=== PATIENT | female | born 1940 | race African-American/Black ===

== ENCOUNTER 2020-03-14 15:21 | Inpatient (IN) | payer MEDICARE ==
[~2020-03-14] VITALS: Ht 162.6 cm; Wt 90.3 kg
[2020-03-14 15:54] VITALS: BP 135/72
--- NOTE | 2020-03-14 16:12 | Emergency Room Report ---
History of Present Illness General Chief Complaint: Generalized Weakness Source: Patient (Belén Cortes) Present Illness HPI 79-year-old female presents to the emergency department brought by ambulance after concerned daughter called 911. Daughter reports that since Friday the patient has had significant fatigue and weakness. Her daughter reports that the patient is normally ambulatory and much more alert. The daughter states that her mother has not eaten in 5 days and is just been wanting to lay down. She reports that her mom did complain about right leg pain with some swelling. Daughter reports history of right knee injury and frequent swelling of the lower extremities. The patient reports 5 out of 10 severity pain in the right calf she denies having knee pain. Patient denies cough, shortness of breath, dizziness or fatigue. Pt. Denies abdominal pain or tenderness. She denies trauma or fall. Pt. Reports having normal bowel movements, and denies urinary symptoms. PmHx of HTN and Dementia. (Belén Cortes) Allergies: Coded Allergies: No Known Allergies (Unverified , 03/14/20) COVID-19 Screening Contact w/high risk pt: No Experienced COVID-19 symptoms?: No COVID-19 Testing performed MARINE PROPULSION TECHNICIAN: No (Belén Cortes) Patient History Past Medical History: see triage record, HTN, dementia Past Surgical History: none Pertinent Family History: none Now: No Reviewed Nursing Documentation: PMH: Agreed; PSxH: Agreed (Belén Cortes) Nursing Documentation-PMH Past Medical History: No History, Except For Hx Hypertension: Yes (Belén Cortes) Review of Systems All Other Systems: negative except mentioned in HPI (Belén Cortes) Physical Exam Vital Signs Date Time Temp Pulse Resp B/P (MAP) Pulse Ox O2 Delivery O2 Flow Rate FiO2 03/14/20 15:18 97.5 115 20 135/72 (93) 98 Room Air Sp02 EP Interpretation: reviewed, normal General Appearance: no apparent distress, alert, GCS 15, non-toxic Head: normocephalic, atraumatic Eyes: bilateral eye normal inspection, bilateral eye PERRL ENT: hearing grossly normal, normal voice Neck: full range of motion Respiratory: chest non-tender, lungs clear, normal breath sounds, no respiratory distress, no accessory muscle use, no wheezing, speaking full sentences Cardiovascular #1: regular rate, rhythm, tachycardia, edema - bilateral LE edema/swelling, right > left. Gastrointestinal: normal bowel sounds, non tender, soft Rectal: deferred Genitourinary: ext genitalia/vag normal Musculoskeletal: back normal, calf tenderness - Right, swelling - RIght calf and knee. Neurologic: alert, sensory intact, motor weakness, responsive, speech normal, no pronator, no focal defects, other - Pt. only orientated to person. Psychiatric: judgement/insight normal, no suicidal/homicidal ideation Skin: normal color (Belén Cortes) Medical Decision Making PA Attestation Dr. Medina Is my supervising Physician whom patient management has been discussed with. (Belén Cortes) Diagnostic Impression: Primary Impression: COVID-19 Additional Impression: JOY (acute kidney injury) ER Course Pt. with hx of Dementia. Daughter reports no Advance directive in place. 79-year-old female presents to the emergency department brought by ambulance after concerned daughter called 911. Daughter reports that since Friday the patient has had significant fatigue and weakness. Her daughter reports that the patient is normally ambulatory and much more alert. The daughter states that her mother has not eaten in 5 days and is just been wanting to lay down. She reports that her mom did complain about right leg pain with some swelling. Daughter reports history of right knee injury and frequent swelling of the lower extremities. The patient reports 5 out of 10 severity pain in the right calf she denies having knee pain. Patient denies cough, shortness of breath, dizziness or fatigue. Pt. Denies abdominal pain or tenderness. She denies trauma or fall. Pt. Reports having normal bowel movements, and denies urinary symptoms. PmHx of HTN and Dementia. Ddx considered but are not limited to : MS, MG, guilan barre, MD, drug int oxication, hypovolemia, infection, rhabdomylosis, ETOH, CVA/TIA, NMS, CHF, Seizures, Cardiac outflow obstruction, QT-prolongation, Brugada, or Anemia just to name a few. Vital signs: are WNL, pt. is afebrile H&PE are most consistent with patient that is nontoxic in appearance with significant lethargy. No evidence of acute abdomen on exam. No evidence of focal neurological deficit. Right lower extremity is suspicious for possible DVT given right calf tenderness as well as swelling and torturous veins. ORDERS: - CBC -WNL -CMP: Elevated BUN of 48, elevated creatinine at 2.3 - Troponin: 0.20- WNL - BNP: * elevated 517 -CK: WNL -D-Dimer: Elevated at 3.48 -PT/PTT: WNL -CRP: Elevated at 12.4 -Lipase: 440 - UA: 3+ protein, no increase in inflammatory markers. Few bacteria as well as squamous epithelial cells most indicative of contamination. -EKG92 bpm NSR, some left axis deviation -CXR: Unremarkable -VENOUS DUPLEX RIGHT LE: Negative for acute DVT -COVID-19: POSITIVE ED INTERVENTIONS: -1 Liter NS Bolus IV DISPOSITION: at this time pt. will be admitted for JOY and COVID-19. Dr. Steven from [place] gave approval over the phone for pt. to be admitted here. authorization number was given to ED registration. -Pt. is to be admitted to Dr. San, who agrees to continue pt. management and care. Labs Test 03/14/20 16:27 03/14/20 17:00 White Blood Count 5.7 K/UL (4.8-10.8) Red Blood Count 4.82 M/UL (4.20-5.40) Hemoglobin 13.5 G/DL (12.0-16.0) Hematocrit 39.7 % (37.0-47.0) Mean Corpuscular Volume 82 FL (80-99) Mean Corpuscular Hemoglobin 27.9 PG (27.0-31.0) Mean Corpuscular Hemoglobin Concent 33.9 G/DL (32.0-36.0) Red Cell Distribution Width 14.7 % (11.6-14.8) Platelet Count 252 K/UL (150-450) Mean Platelet Volume 8.2 FL (6.5-10.1) Neutrophils (%) (Auto) 66.3 % (45.0-75.0) Lymphocytes (%) (Auto) 15.0 % (20.0-45.0) Monocytes (%) (Auto) 17.7 % (1.0-10.0) Eosinophils (%) (Auto) 0.1 % (0.0-3.0) Basophils (%) (Auto) 0.9 % (0.0-2.0) Prothrombin Time 11.3 SEC (9.30-11.50) Prothromb Time International Ratio 1.0 (0.9-1.1) Activated Partial Thromboplast Time 28 SEC (23-33) D-Dimer 3.48 mg/L FEU (0.00-0.49) Sodium Level 136 MMOL/L (136-145) Potassium Level 3.9 MMOL/L (3.5-5.1) Chloride Level 98 MMOL/L (98-107) Carbon Dioxide Level 27 MMOL/L (21-32) Anion Gap 11 mmol/L (5-15) Blood Urea Nitrogen 48 mg/dL (7-18) Creatinine 2.3 MG/DL (0.55-1.30) Estimat Glomerular Filtration Rate 25.0 mL/min (>60) Glucose Level 137 MG/DL (74-106) Calcium Level 9.3 MG/DL (8.5-10.1) Ferritin 375 NG/ML (8-388) Total Bilirubin 0.9 MG/DL (0.2-1.0) Aspartate Amino Transf (AST/SGOT) 33 U/L (15-37) Alanine Aminotransferase (ALT/SGPT) 15 U/L (12-78) Alkaline Phosphatase 63 U/L (46-116) Lactate Dehydrogenase 292 U/L (81-234) Total Creatine Kinase 141 U/L (26-308) Troponin I 0.021 ng/mL (0.000-0.056) C-Reactive Protein, Quantitative 12.4 mg/dL (0.00-0.90) Pro-B-Type Natriuretic Peptide 517 pg/mL (0-125) Total Protein 9.1 G/DL (6.4-8.2) Albumin 3.2 G/DL (3.4-5.0) Globulin 5.9 g/dL Albumin/Globulin Ratio 0.5 (1.0-2.7) Lipase 440 U/L (73-393) Urine Color Yellow Urine Appearance Slightly cloudy Urine pH 5 (4.5-8.0) Urine Specific [place] 1.020 (1.005-1.035) Urine Protein 3+ (NEGATIVE) Urine Glucose (UA) Negative (NEGATIVE) Urine Ketones Negative (NEGATIVE) Urine Blood 2+ (NEGATIVE) Urine Nitrite Negative (NEGATIVE) Urine Bilirubin Negative (NEGATIVE) Urine Urobilinogen 4 MG/DL (0.0-1.0) Urine Leukocyte Esterase Negative (NEGATIVE) Urine RBC 2-4 /HPF (0 - 2) Urine WBC 0-2 /HPF (0 - 2) Urine Squamous Epithelial Cells Few /LPF (NONE/OCC) Urine Amorphous Sediment Few /LPF (NONE) Urine Bacteria Few /HPF (NONE) Lactic Acid Level 1.50 mmol/L (0.4-2.0) (Belén Cortes) ER Course I saw and evaluated the patient and discussed the care with Belén LOCKWOOD on 03/14/20. I agree with the findings and plan as documented in the note. 79-year-old female multiple comorbidities presents with JOY, altered mental status, and positive Covid patient given 1 L of hydration, supportive care started patient admitted to Dr. San (Efrem Medina MD) EKG Diagnostic Results Troponin ordered: Yes When was troponin ordered?: Mar 14, 2020 EKG Time: 16:29 Rate: normal Rhythm: NSR ST Segments: no acute changes ASA given to the pt in ED: No PA Scribe Text This Interpretation was scribed by FABIÁN Cortes. (Belén Cortes) Last Vital Signs Date Time Temp Pulse Resp B/P (MAP) Pulse Ox O2 Delivery O2 Flow Rate FiO2 03/14/20 15:54 97.5 20 135/72 98 Room Air 03/14/20 15:54 115 (Belén Cortes) Disposition: ADMITTED INPATIENT Condition: Serious Scripts No Active Prescriptions or Reported Meds Belén Cortes Mar 14, 2020 16:12 Efrem Medina MD Mar 14, 2020 22:13
[2020-03-14 16:49] LABS: CALCIUM 9.3 MG/DL (8.5-10.1); CREATININE 2.3 MG/DL (0.55-1.30); POTASSIUM 3.9 MMOL/L (3.5-5.1)
[2020-03-14 17:00] LABS: ALBUMIN 3.2 G/DL (3.4-5.0); ALBUMIN/GLOBULIN RATIO 0.5 (1.0-2.7); BILIRUBIN,TOTAL 0.9 MG/DL (0.2-1.0)
[2020-03-14 17:01] LABS: BASOPHILS % (AUTO) 0.9 % (0.0-2.0); EOSINOPHILS % (AUTO) 0.1 % (0.0-3.0); HEMATOCRIT 39.7 % (37.0-47.0); HEMOGLOBIN 13.5 G/DL (12.0-16.0); MEAN CORPUSCULAR VOLUME 82 FL (80-99); MONOCYTES % (AUTO) 17.7 % (1.0-10.0); NEUTROPHILS % (AUTO) 66.3 % (45.0-75.0); PLATELET COUNT 252 K/UL (150-450); RED BLOOD COUNT 4.82 M/UL (4.20-5.40); RED CELL DISTRIBUTION WIDTH 14.7 % (11.6-14.8); WHITE BLOOD COUNT 5.7 K/UL (4.8-10.8)
--- NOTE | 2020-03-14 17:02 | Diagnostic Imaging Report ---
Indication: Chest pain Technique: XRAY Chest 1v Comparison: None Findings: Heart size and mediastinal contours are within normal limits for AP technique. There is no focal airspace consolidation, pneumothorax or pleural effusion. Osseous structures demonstrate no acute abnormality. Impression: No radiographic evidence of acute cardiopulmonary disease.
[2020-03-14 17:37] LABS: APPEARANCE,URINE SLIGHTLY CLOUDY; BILIRUBIN, URINE NEGATIVE (NEGATIVE); GLUCOSE, URINE (UA) NEGATIVE (NEGATIVE); KETONES,URINE NEGATIVE (NEGATIVE); LEUKOCYTE ESTERASE ,URINE NEGATIVE (NEGATIVE); NITRITE,URINE NEGATIVE (NEGATIVE); PH,URINE 5 (4.5-8.0); PROTEIN,URINE 3+ (NEGATIVE); UROBILINOGEN,URINE 4 MG/DL (0.0-1.0)
[2020-03-14 17:38] LABS: CREATINE KINASE 141 U/L (26-308); FERRITIN 375 NG/ML (8-388); LACTATE DEHYDROGENASE 292 U/L (81-234)
[2020-03-14 17:39] LABS: COLOR,URINE YELLOW
[2020-03-14 20:46] VITALS: BP 149/87
[2020-03-14] MEDS ORDERED: D5 1/2NS w/KCl 20mEq 1,000 ML IV ONE (23:00)
[2020-03-14] MEDS ORDERED: LORazepam Inj 2mg/ml 1ml IV PRN (23:00)
[2020-03-15 04:00] VITALS: BP 141/88
[2020-03-15 08:00] VITALS: BP 148/99
--- NOTE | 2020-03-15 08:51 | Diagnostic Imaging Report ---
Indication: Right leg pain Technique: Grayscale and duplex images of the right lower extremity veins Comparison: none Findings: On the right, grayscale and duplex images demonstrate no evidence of intraluminal thrombus. Normal phasic Doppler waveforms, demonstrating normal augmentation response and no evidence of valvular insufficiency. Greater saphenous vein(s) and tibial veins are patent. Normal compressibility. Impression: Negative for evidence of lower extremity deep venous thrombosis on the right
--- NOTE | 2020-03-15 08:57 | Consultation ---
History of Present Illness General Date patient seen: Mar 15, 2020 Time patient seen: 11:14 Chief Complaint: Generalized Weakness Referring physician: PCP Reason for Consultation: COVID+ Present Illness HPI 79yo F who p/w fatigue and weakness, found to be COVID+ for which ID is consulted. Per ED note, on presentation pt had not eaten for 5 days and had been very tired. Also c/o R leg pain w/ some swelling. H/o R knee injury and BLE swelling. Pt is AF, HDS on RA satting well in house. NAD. WBC wnl. Pt denies any pain, issues breathing or other complaints. Reports she is doing well PMH: HTN Dementia Allergies: Coded Allergies: No Known Allergies (Unverified , 03/14/20) Medication History No Active Prescriptions or Reported Meds Patient History Limited by: medical condition Healthcare decision maker Resuscitation status Advanced Directive on File Review of Systems ROS Narrative 10-point ROS neg except as noted in HPI Physical Exam Neck: limited range of motion Physical Exam Narrative Gen: NAD HEENT: NCAT Pulm: BL chest rise Abd: Soft, NTND Ext: No c/c/e Skin: No visible rashes Neuro: Awake Last 24 Hour Vital Signs Date Time Temp Pulse Resp B/P (MAP) Pulse Ox O2 Delivery O2 Flow Rate FiO2 03/15/20 04:00 99.1 82 20 141/88 (105) 96 03/15/20 00:46 Room Air 03/14/20 22:00 98.9 94 18 159/90 96 Room Air 03/14/20 15:54 97.5 20 135/72 98 Room Air 03/14/20 15:54 115 20 Room Air 03/14/20 15:18 97.5 115 20 135/72 (93) 98 Room Air Intake and Output 03/14/20 03/15/20 19:00 07:00 Intake Total 0 ml Balance 0 ml Intake Oral 0 ml # Voids 4 Laboratory Tests Test 03/14/20 16:27 03/14/20 17:00 White Blood Count 5.7 K/UL (4.8-10.8) Red Blood Count 4.82 M/UL (4.20-5.40) Hemoglobin 13.5 G/DL (12.0-16.0) Hematocrit 39.7 % (37.0-47.0) Mean Corpuscular Volume 82 FL (80-99) Mean Corpuscular Hemoglobin 27.9 PG (27.0-31.0) Mean Corpuscular Hemoglobin Concent 33.9 G/DL (32.0-36.0) Red Cell Distribution Width 14.7 % (11.6-14.8) Platelet Count 252 K/UL (150-450) Mean Platelet Volume 8.2 FL (6.5-10.1) Neutrophils (%) (Auto) 66.3 % (45.0-75.0) Lymphocytes (%) (Auto) 15.0 % (20.0-45.0) L Monocytes (%) (Auto) 17.7 % (1.0-10.0) H Eosinophils (%) (Auto) 0.1 % (0.0-3.0) Basophils (%) (Auto) 0.9 % (0.0-2.0) Prothrombin Time 11.3 SEC (9.30-11.50) Prothromb Time International Ratio 1.0 (0.9-1.1) Activated Partial Thromboplast Time 28 SEC (23-33) D-Dimer 3.48 mg/L FEU (0.00-0.49) H Sodium Level 136 MMOL/L (136-145) Potassium Level 3.9 MMOL/L (3.5-5.1) Chloride Level 98 MMOL/L (98-107) Carbon Dioxide Level 27 MMOL/L (21-32) Anion Gap 11 mmol/L (5-15) Blood Urea Nitrogen 48 mg/dL (7-18) H Creatinine 2.3 MG/DL (0.55-1.30) H Estimat Glomerular Filtration Rate 25.0 mL/min (>60) Glucose Level 137 MG/DL (74-106) H Calcium Level 9.3 MG/DL (8.5-10.1) Ferritin 375 NG/ML (8-388) Total Bilirubin 0.9 MG/DL (0.2-1.0) Aspartate Amino Transf (AST/SGOT) 33 U/L (15-37) Alanine Aminotransferase (ALT/SGPT) 15 U/L (12-78) Alkaline Phosphatase 63 U/L (46-116) Lactate Dehydrogenase 292 U/L (81-234) H Total Creatine Kinase 141 U/L (26-308) Troponin I 0.021 ng/mL (0.000-0.056) C-Reactive Protein, Quantitative 12.4 mg/dL (0.00-0.90) H Pro-B-Type Natriuretic Peptide 517 pg/mL (0-125) H Total Protein 9.1 G/DL (6.4-8.2) H Albumin 3.2 G/DL (3.4-5.0) L Globulin 5.9 g/dL Albumin/Globulin Ratio 0.5 (1.0-2.7) L Lipase 440 U/L (73-393) H Urine Color Yellow Urine Appearance Slightly cloudy Urine pH 5 (4.5-8.0) Urine Specific [place] 1.020 (1.005-1.035) Urine Protein 3+ (NEGATIVE) H Urine Glucose (UA) Negative (NEGATIVE) Urine Ketones Negative (NEGATIVE) Urine Blood 2+ (NEGATIVE) H Urine Nitrite Negative (NEGATIVE) Urine Bilirubin Negative (NEGATIVE) Urine Urobilinogen 4 MG/DL (0.0-1.0) H Urine Leukocyte Esterase Negative (NEGATIVE) Urine RBC 2-4 /HPF (0 - 2) H Urine WBC 0-2 /HPF (0 - 2) Urine Squamous Epithelial Cells Few /LPF (NONE/OCC) Urine Amorphous Sediment Few /LPF (NONE) H Urine Bacteria Few /HPF (NONE) Lactic Acid Level 1.50 mmol/L (0.4-2.0) Microbiology Date/Time Source Procedure Growth Status 03/14/20 18:51 Nasopharynx SARS-CoV-2 RdRp Gene Assay - Final Complete Height (Feet): 5 Height (Inches): 4.00 Weight (Pounds): 199 Medications Current Medications Medications (Trade) Dose Ordered Sig/Natalya Route PRN Reason Start Time Stop Time Status Last Admin Dose Admin Acetaminophen (Tylenol) 650 mg Q6H PRN ORAL Mild Pain (Pain Scale 1-3) 03/14/20 23:00 04/13/20 22:59 Acetaminophen (Tylenol) 650 mg Q6H PRN ORAL Temp >100.5 03/14/20 23:00 04/13/20 22:59 Amlodipine Besylate (Norvasc) 5 mg DAILY ORAL 03/15/20 09:00 04/14/20 08:59 Aspirin (ASA) 81 mg DAILY NG 03/15/20 09:00 04/29/20 08:59 Dexamethasone Sodium Phosphate (Decadron 10mg/ ml Inj) 6 mg DAILY IV 03/15/20 09:00 06/13/20 08:59 Dextrose/ Electrolytes 1,000 ml @ 75 mls/hr [id number] ONCE IV 03/14/20 23:00 03/15/20 12:19 03/14/20 23:00 Heparin Sodium (Porcine) (Heparin 5000 units/ml) 5,000 units EVERY 12 HOURS SUBQ 03/15/20 09:00 04/29/20 08:59 Lorazepam (Ativan 2mg/ml 1ml) 0.5 mg EVERY 6 HOURS PRN IV For Anxiety 03/14/20 23:00 03/21/20 22:59 Ondansetron HCl (Zofran) 4 mg Q6H PRN IVP Nausea & Vomiting 03/14/20 23:00 04/13/20 22:59 Assessment/Plan Assessment/Plan: 79yo F with: COVID pna Afebrile Normal WBC Lymphopenia 03/14 BCx p COVID rapid test positive CXR: No acute process JOY, Cr 2.3 PMH: HTN Dementia Plan: Cont dexamethasone #2 for now, if remains on RA will stop Monitor off abx given doing well on RA and normal WBC Not candidate for RDV given doing well on RA This institution does not have access to convalescent plasma, and as pt doing well on RA unlikely to benefit from it Monitor CBC/CMP Monitor temp curve, hemodynamics Monitor resp status D/w RN Thank you for this consult. [facility] will continue to follow. Maggie Chowdary M.D. Mar 15, 2020 08:57
[2020-03-15] MEDS: Heparin 5000 units/ml inj SUBQ SCH ×3 (09:00→21:00)
[2020-03-15 09:23] LABS: BASOPHILS % (AUTO) 1.2 % (0.0-2.0); EOSINOPHILS % (AUTO) 0.4 % (0.0-3.0); HEMATOCRIT 39.8 % (37.0-47.0); HEMOGLOBIN 13.6 G/DL (12.0-16.0); LYMPHOCYTES % (AUTO) 21.3 % (20.0-45.0); MEAN CORPUSCULAR VOLUME 82 FL (80-99); MONOCYTES % (AUTO) 17.7 % (1.0-10.0); NEUTROPHILS % (AUTO) 59.4 % (45.0-75.0); PLATELET COUNT 229 K/UL (150-450); RED BLOOD COUNT 4.84 M/UL (4.20-5.40); RED CELL DISTRIBUTION WIDTH 14.1 % (11.6-14.8); WHITE BLOOD COUNT 4.8 K/UL (4.8-10.8)
[2020-03-15] MEDS: Aspirin Baby 81mg NG SCH (10:04)
[2020-03-15] MEDS: dexAMETHasone 10mg/ml Inj IV SCH (10:04)
--- NOTE | 2020-03-15 10:09 | Consultation ---
History of Present Illness General Date patient seen: Mar 15, 2020 Chief Complaint: Generalized Weakness Referring physician: PCP Reason for Consultation: COVID+ Present Illness HPI 79-year-old female with hx of HTN and dementia presented to ER brought by ambulance cecause of fatigue and weakness. Her daughter reports that the patient is normally ambulatory and much more alert. The daughter states that her mother has not eaten in 5 days and is just been wanting to lay down. The patient reports 5 out of 10 severity pain in the right calf she denies having knee pain. Patient denies cough, shortness of breath, dizziness or fatigue. She was found to be COVID positive. She also had acute renal failure caused by dehydration. She is admitted for further management. Allergies: Coded Allergies: No Known Allergies (Unverified , 03/14/20) Medication History No Active Prescriptions or Reported Meds Patient History Healthcare decision maker Resuscitation status Advanced Directive on File Past Medical/Surgical History Past Medical/Surgical History: (1) History of hypertension (2) Alzheimer's dementia Review of Systems All Other Systems: negative except mentioned in HPI Physical Exam General Appearance: WD/WN, no apparent distress, alert Lines, tubes and drains: peripheral HEENT: normocephalic, atraumatic Neck: non-tender, normal alignment, supple Breasts: no masses Cardiovascular/Chest: normal peripheral pulses, normal rate Abdomen: normal bowel sounds, non tender Genitourinary/Rectal: normal genital exam Last 24 Hour Vital Signs Date Time Temp Pulse Resp B/P (MAP) Pulse Ox O2 Delivery O2 Flow Rate FiO2 03/15/20 04:00 99.1 82 20 141/88 (105) 96 03/15/20 00:46 Room Air 03/14/20 22:00 98.9 94 18 159/90 96 Room Air 03/14/20 15:54 97.5 20 135/72 98 Room Air 03/14/20 15:54 115 20 Room Air 03/14/20 15:18 97.5 115 20 135/72 (93) 98 Room Air Intake and Output 03/14/20 03/15/20 19:00 07:00 Intake Total 0 ml Balance 0 ml Intake Oral 0 ml # Voids 4 Laboratory Tests Test 03/14/20 16:27 03/14/20 17:00 03/15/20 09:14 White Blood Count 5.7 K/UL (4.8-10.8) 4.8 K/UL (4.8-10.8) Red Blood Count 4.82 M/UL (4.20-5.40) 4.84 M/UL (4.20-5.40) Hemoglobin 13.5 G/DL (12.0-16.0) 13.6 G/DL (12.0-16.0) Hematocrit 39.7 % (37.0-47.0) 39.8 % (37.0-47.0) Mean Corpuscular Volume 82 FL (80-99) 82 FL (80-99) Mean Corpuscular Hemoglobin 27.9 PG (27.0-31.0) 28.0 PG (27.0-31.0) Mean Corpuscular Hemoglobin Concent 33.9 G/DL (32.0-36.0) 34.1 G/DL (32.0-36.0) Red Cell Distribution Width 14.7 % (11.6-14.8) 14.1 % (11.6-14.8) Platelet Count 252 K/UL (150-450) 229 K/UL (150-450) Mean Platelet Volume 8.2 FL (6.5-10.1) 7.2 FL (6.5-10.1) Neutrophils (%) (Auto) 66.3 % (45.0-75.0) 59.4 % (45.0-75.0) Lymphocytes (%) (Auto) 15.0 % (20.0-45.0) L 21.3 % (20.0-45.0) Monocytes (%) (Auto) 17.7 % (1.0-10.0) H 17.7 % (1.0-10.0) H Eosinophils (%) (Auto) 0.1 % (0.0-3.0) 0.4 % (0.0-3.0) Basophils (%) (Auto) 0.9 % (0.0-2.0) 1.2 % (0.0-2.0) Prothrombin Time 11.3 SEC (9.30-11.50) Prothromb Time International Ratio 1.0 (0.9-1.1) Activated Partial Thromboplast Time 28 SEC (23-33) D-Dimer 3.48 mg/L FEU (0.00-0.49) H Pending Sodium Level 136 MMOL/L (136-145) Pending Potassium Level 3.9 MMOL/L (3.5-5.1) Pending Chloride Level 98 MMOL/L (98-107) Pending Carbon Dioxide Level 27 MMOL/L (21-32) Pending Anion Gap 11 mmol/L (5-15) Blood Urea Nitrogen 48 mg/dL (7-18) H Pending Creatinine 2.3 MG/DL (0.55-1.30) H Pending Estimat Glomerular Filtration Rate 25.0 mL/min (>60) Pending Glucose Level 137 MG/DL (74-106) H Pending Calcium Level 9.3 MG/DL (8.5-10.1) Pending Ferritin 375 NG/ML (8-388) Total Bilirubin 0.9 MG/DL (0.2-1.0) Aspartate Amino Transf (AST/SGOT) 33 U/L (15-37) Alanine Aminotransferase (ALT/SGPT) 15 U/L (12-78) Alkaline Phosphatase 63 U/L (46-116) Lactate Dehydrogenase 292 U/L (81-234) H Total Creatine Kinase 141 U/L (26-308) Troponin I 0.021 ng/mL (0.000-0.056) Pending C-Reactive Protein, Quantitative 12.4 mg/dL (0.00-0.90) H Pending Pro-B-Type Natriuretic Peptide 517 pg/mL (0-125) H Total Protein 9.1 G/DL (6.4-8.2) H Albumin 3.2 G/DL (3.4-5.0) L Globulin 5.9 g/dL Albumin/Globulin Ratio 0.5 (1.0-2.7) L Lipase 440 U/L (73-393) H Urine Color Yellow Urine Appearance Slightly cloudy Urine pH 5 (4.5-8.0) Urine Specific [place] 1.020 (1.005-1.035) Urine Protein 3+ (NEGATIVE) H Urine Glucose (UA) Negative (NEGATIVE) Urine Ketones Negative (NEGATIVE) Urine Blood 2+ (NEGATIVE) H Urine Nitrite Negative (NEGATIVE) Urine Bilirubin Negative (NEGATIVE) Urine Urobilinogen 4 MG/DL (0.0-1.0) H Urine Leukocyte Esterase Negative (NEGATIVE) Urine RBC 2-4 /HPF (0 - 2) H Urine WBC 0-2 /HPF (0 - 2) Urine Squamous Epithelial Cells Few /LPF (NONE/OCC) Urine Amorphous Sediment Few /LPF (NONE) H Urine Bacteria Few /HPF (NONE) Lactic Acid Level 1.50 mmol/L (0.4-2.0) Erythrocyte Sedimentation Rate Pending Phosphorus Level Pending Magnesium Level Pending Microbiology Date/Time Source Procedure Growth Status 03/14/20 18:51 Nasopharynx SARS-CoV-2 RdRp Gene Assay - Final Complete Height (Feet): 5 Height (Inches): 4.00 Weight (Pounds): 199 Medications Current Medications Medications (Trade) Dose Ordered Sig/Natalya Route PRN Reason Start Time Stop Time Status Last Admin Dose Admin Acetaminophen (Tylenol) 650 mg Q6H PRN ORAL Mild Pain (Pain Scale 1-3) 03/14/20 23:00 04/13/20 22:59 Acetaminophen (Tylenol) 650 mg Q6H PRN ORAL Temp >100.5 03/14/20 23:00 04/13/20 22:59 Amlodipine Besylate (Norvasc) 5 mg DAILY ORAL 03/15/20 09:00 04/14/20 08:59 Aspirin (ASA) 81 mg DAILY NG 03/15/20 09:00 04/29/20 08:59 Dexamethasone Sodium Phosphate (Decadron 10mg/ ml Inj) 6 mg DAILY IV 03/15/20 09:00 03/24/20 09:01 Dextrose/ Electrolytes 1,000 ml @ 75 mls/hr [id number] ONCE IV 03/14/20 23:00 03/15/20 12:19 03/14/20 23:00 Heparin Sodium (Porcine) (Heparin 5000 units/ml) 5,000 units EVERY 12 HOURS SUBQ 03/15/20 09:00 04/29/20 08:59 Lorazepam (Ativan 2mg/ml 1ml) 0.5 mg EVERY 6 HOURS PRN IV For Anxiety 03/14/20 23:00 03/21/20 22:59 Ondansetron HCl (Zofran) 4 mg Q6H PRN IVP Nausea & Vomiting 03/14/20 23:00 04/13/20 22:59 Assessment/Plan Problem List: (1) COVID-19 ICD Codes: U07.1 - COVID-19 SNOMED: 983361969 (2) JOY (acute kidney injury) ICD Codes: N17.9 - Acute kidney failure, unspecified SNOMED: 48795924, 3647493 (3) Alzheimer's dementia ICD Codes: G30.9 - Alzheimer's disease, unspecified; F02.80 - Dementia in other diseases classified elsewhere without behavioral disturbance SNOMED: 76202879 (4) History of hypertension ICD Codes: Z86.79 - Personal history of other diseases of the circulatory system SNOMED: 125065329 Assessment/Plan: respiratory isolation titrate fio2 to sat of 92 IV fluids renal w/u including renal US check electrolytes daily ID to decide about use of antivirals and steroids dvt prophylaxis antitussives symptomatic treatment. Marcelo Gabriel MD Mar 15, 2020 10:09
[2020-03-15 10:40] LABS: CALCIUM 8.8 MG/DL (8.5-10.1); CREATININE 1.4 MG/DL (0.55-1.30); PHOSPHORUS 2.6 MG/DL (2.5-4.9); POTASSIUM 3.4 MMOL/L (3.5-5.1)
[2020-03-15 10:53] LABS: CREATINE KINASE 291 U/L (26-140)
[2020-03-15 12:00] VITALS: BP 166/98
--- NOTE | 2020-03-15 12:03 | Consultation ---
Consult Note Consult Note I am asked to evaluate the patient at the request of Dr. San for renal failure Chief Complaint: Generalized Weakness 79-year-old female presents to the emergency department brought by ambulance after concerned daughter called 911. Daughter reports that since Friday the patient has had significant fatigue and weakness. Her daughter reports that the patient is normally ambulatory and much more alert. The daughter states that her mother has not eaten in 5 days and is just been wanting to lay down. She reports that her mom did complain about right leg pain with some swelling. Daughter reports history of right knee injury and frequent swelling of the lower extremities. The patient reports 5 out of 10 severity pain in the right calf she denies having knee pain. Patient denies cough, shortness of breath, dizziness or fatigue. Pt. Denies abdominal pain or tenderness. She denies trauma or fall. Pt. Reports having normal bowel movements, and denies urinary symptoms. PmHx of HTN and Dementia. Allergies: No known allergies Contact w/high risk pt: No Experienced COVID-19 symptoms?: No COVID-19 Testing performed DIRECTOR OF SERVICES: No Past Medical History: see triage record, HTN, dementia Past Surgical History: none Pertinent Family History: none Now: No Past Medical History: No History, Except For Hx Hypertension: Yes Vital Signs Date Time Temp Pulse Resp B/P (MAP) Pulse Ox O2 Delivery O2 Flow Rate FiO2 03/14/20 15:18 97.5 115 20 135/72 (93) 98 Room Air Physical Exam Gen: NAD HEENT: NCAT Pulm: BL chest rise Abd: Soft, NTND Ext: No c/c/e Skin: No visible rashes Neuro: Awake LABORATORY STUDIES: COVID-19 was reported as positive. WBC 5.7, hemoglobin 13.5, hematocrit 39.7, platelets 252,000. Sodium 136, potassium 3.9, chloride 98, CO2 27, BUN 48, creatinine 2.3. Glucose 137. Troponin 0.021. BNP elevated at 490. Chest x-ray is reported as no acute disease. Assessment/Plan Acute renal failure Possible underlying chronic kidney disease Dehydration COVID-19 infection Hypertension Dementia Elevated lipase Slow hydrate Keep blood pressure in check Antibiotics and treatment aimed towards Covid infection Monitor renal parameters, and lipase level Urine studies Per orders Kristopher Lomeli MD Mar 15, 2020 12:03
[2020-03-15] MEDS: Docusate 100mg cap ORAL SCH ×2 (14:10→18:29)
--- NOTE | 2020-03-15 14:36 | Diagnostic Imaging Report ---
Indication: Abnormal renal function tests and acute renal failure Technique: Grayscale and duplex images of the kidneys, retroperitoneum, and bladder were obtained. Comparison: none Findings: Right kidney measures 10.2 cm in length. Left kidney measures 9.1 cm in length. Both kidneys demonstrate normal echogenicity. No hydronephrosis on the left. There is mild fullness of the right renal collecting system. No focal abnormality. Normal inferior vena cava. Bladder is distended, volume calculated at 433 mL. Impression: Distended bladder Mild fullness of the right renal collecting system without vee hydronephrosis.
[2020-03-15] MEDS: HydrALAZINE 25mg tab ORAL PRN (15:11)
[2020-03-15 16:00] VITALS: BP 143/75
[2020-03-15] MEDS ORDERED: LIPITOR20 MG ORAL (16:41)
[2020-03-15] MEDS ORDERED: HYDROCHLOROTH12.5 MG ORAL (16:41)
[2020-03-15] MEDS ORDERED: POTASSIUM CHLO20 ME1 ORAL (16:41)
[2020-03-15] MEDS ORDERED: ASPIRIN81 MG ORAL (16:41)
[2020-03-15] MEDS ORDERED: LOSARTAN POTASS50 MG ORAL (16:41)
--- NOTE | 2020-03-15 17:28 | History & Physical ---
History and Physical History & Physicial Dictated for Int Med-Dr San no. [id number]. Anthony Gonzales MD Mar 15, 2020 17:28
[2020-03-15 19:53] LABS: APPEARANCE,URINE SLIGHTLY CLOUDY; BILIRUBIN, URINE NEGATIVE (NEGATIVE); COLOR,URINE PALE YELLOW; GLUCOSE, URINE (UA) 1+ (NEGATIVE); KETONES,URINE NEGATIVE (NEGATIVE); LEUKOCYTE ESTERASE ,URINE NEGATIVE (NEGATIVE); NITRITE,URINE NEGATIVE (NEGATIVE); PH,URINE 6 (4.5-8.0); PROTEIN,URINE 2+ (NEGATIVE); UROBILINOGEN,URINE NORMAL MG/DL (0.0-1.0)
[2020-03-15 20:00] VITALS: BP 155/95
--- NOTE | 2020-03-15 20:14 | History and Physical Report ---
DATE OF ADMISSION: 03/14/2020 CHIEF COMPLAINT: The patient is a 79-year-old female, who presents with chief complaint of fatigue. HISTORY OF PRESENT ILLNESS: The patient was brought in by ambulance. The patient's daughter became concerned because the patient has had increasing fatigue since Tuesday, March 10, 2020. The patient has also not eaten in the last five days. The patient presented to [facility] emergency room. The patient was found to have COVID-19 positive. The patient is admitted with COVID-19 pneumonia. REVIEW OF SYSTEMS: Unable to assess secondary to the patient's mental status. PAST MEDICAL HISTORY: Significant for: 1. Hypertension. 2. Alzheimer's dementia. PAST SURGICAL HISTORY: The patient denies. CURRENT MEDICATIONS: 1. Aspirin 81 mg one tablet p.o. daily. 2. Atorvastatin 20 mg p.o. daily. 3. Hydrochlorothiazide 12.5 mg p.o. daily. 4. Losartan 100 mg p.o. daily. 5. Potassium chloride 20 mEq p.o. daily. ALLERGIES: No known drug allergies. SOCIAL HISTORY: The patient is single. The patient denies tobacco or alcohol use. PHYSICAL EXAMINATION: VITAL SIGNS: Temperature 97.5, respirations 20, pulse 115, blood pressure 135/72. Pulse oximetry 98% on room air. GENERAL: The patient is a well-developed and well-nourished female, in no apparent distress. HEENT: Eyes, pupils are equal responsive to light and accommodation. Extraocular movements are intact. NECK: Supple without lymphadenopathy. CHEST: Lungs are clear to auscultation bilaterally without wheezes or rales. CARDIOVASCULAR: Regular rhythm and rate. S1, S2 normal without murmurs, rubs, gallops. ABDOMEN: Soft, nontender, and nondistended. Positive bowel sounds. No evidence of hepatosplenomegaly. Currently, no rebound or guarding noted. EXTREMITIES: Negative for clubbing, cyanosis, or edema. RECTAL/GENITAL: Not performed. NEUROLOGIC: Cranial nerves II through XII are grossly intact without focal deficits. Motor strength is 5/5 bilaterally. Deep tendon reflexes are 2+ plantar. LABORATORY STUDIES: COVID-19 was reported as positive. WBC 5.7, hemoglobin 13.5, hematocrit 39.7, platelets 252,000. Sodium 136, potassium 3.9, chloride 98, CO2 27, BUN 48, creatinine 2.3. Glucose 137. Troponin 0.021. BNP elevated at 490. Chest x-ray is reported as no acute disease. ASSESSMENT: This is a 79-year-old female with: 1. COVID-19 positive. 2. Acute renal failure. 3. Hypertension. 4. Alzheimer's dementia. 5. Hypercholesterolemia. TREATMENT: 1. COVID-19 positive. A Pulmonary consultation has been obtained with Dr. Marcelo Gabriel. The patient has been started empirically on Decadron. We will follow recommendations of Pulmonary. 2. Acute renal failure. A Nephrology consultation has been obtained with Dr. Lomeli. Follow recommendations of Nephrology. 3. Hypertension. Continue hydrochlorothiazide and losartan as above. 4. Hypercholesterolemia. Continue atorvastatin as above. 5. Alzheimer's dementia. Anthony Gonzales M.D. DR: LA JOB#: [id number] CC:
[2020-03-16] VITALS: BP 162/92
[2020-03-16] MEDS: HydrALAZINE 25mg tab ORAL PRN ×2 (00:04→09:06)
[2020-03-16 04:00] VITALS: BP 145/93
[2020-03-16 08:00] VITALS: BP 166/100
[2020-03-16] MEDS: Docusate 100mg cap ORAL SCH ×2 (09:05→13:00)
[2020-03-16] MEDS: Heparin 5000 units/ml inj SUBQ SCH (09:05)
[2020-03-16] MEDS: Aspirin Baby 81mg NG SCH (09:05)
[2020-03-16] MEDS: dexAMETHasone 10mg/ml Inj IV SCH (09:06)
--- NOTE | 2020-03-16 09:09 | Infectious Diseases Prog Note ---
Assessment/Plan 79yo F with: COVID pna Afebrile Normal WBC Lymphopenia 03/14 BCx p COVID rapid test positive CXR: No acute process UA neg JOY, Cr 2.3, improving PMH: HTN Dementia Plan: Stop dexamethasone #3 given remains on RA wo resp issues Monitor off abx given doing well on RA and normal WBC Not candidate for RDV given doing well on RA This institution does not have access to convalescent plasma, and as pt doing well on RA unlikely to benefit from it OK to d/c from ID standpoint doing well on RA. Needs home COVID isolation for 10 days from positive diagnosis, 03/14 - 03/23 03/16 SP Dex #3 Monitor CBC/CMP Monitor temp curve, hemodynamics Monitor resp status D/w RN Thank you for this consult. [facility] will continue to follow. Subjective Allergies: Coded Allergies: No Known Allergies (Unverified , 03/14/20) Tmax 101.1 On RA - no issues breathing NAD, doing well, no complaints, pleasant WBC 4.8 Objective Last 24 Hour Vital Signs Date Time Temp Pulse Resp B/P (MAP) Pulse Ox O2 Delivery O2 Flow Rate FiO2 03/16/20 09:06 166/100 03/16/20 09:06 75 166/100 03/16/20 04:00 96.6 92 19 145/93 (110) 98 03/16/20 00:04 163/92 03/16/20 00:00 97.6 82 20 162/92 (115) 95 03/15/20 21:00 Room Air 03/15/20 20:00 97.7 91 19 155/95 (115) 95 03/15/20 18:29 86 143/75 03/15/20 16:00 98.8 86 18 143/75 (97) 97 03/15/20 15:41 99.8 03/15/20 15:11 166/98 03/15/20 12:00 101.1 78 18 166/98 (120) 92 03/15/20 10:04 88 148/99 Height (Feet): 5 Height (Inches): 4.00 Weight (Pounds): 199 Cardiovascular: normal peripheral pulses Gen: NAD HEENT: NCAT Pulm: BL chest rise Abd: Non-distended Ext: No c/c/e Skin: No visible rashes Neuro: Awake Microbiology Date/Time Source Procedure Growth Status 03/14/20 18:51 Nasopharynx SARS-CoV-2 RdRp Gene Assay - Final Complete Laboratory Tests Test 03/15/20 09:14 03/15/20 09:50 03/15/20 18:37 White Blood Count 4.8 K/UL (4.8-10.8) Red Blood Count 4.84 M/UL (4.20-5.40) Hemoglobin 13.6 G/DL (12.0-16.0) Hematocrit 39.8 % (37.0-47.0) Mean Corpuscular Volume 82 FL (80-99) Mean Corpuscular Hemoglobin 28.0 PG (27.0-31.0) Mean Corpuscular Hemoglobin Concent 34.1 G/DL (32.0-36.0) Red Cell Distribution Width 14.1 % (11.6-14.8) Platelet Count 229 K/UL (150-450) Mean Platelet Volume 7.2 FL (6.5-10.1) Neutrophils (%) (Auto) 59.4 % (45.0-75.0) Lymphocytes (%) (Auto) 21.3 % (20.0-45.0) Monocytes (%) (Auto) 17.7 % (1.0-10.0) H Eosinophils (%) (Auto) 0.4 % (0.0-3.0) Basophils (%) (Auto) 1.2 % (0.0-2.0) Erythrocyte Sedimentation Rate 27 MM/HR (0-30) D-Dimer 4.93 mg/L FEU (0.00-0.49) H Sodium Level 135 MMOL/L (136-145) L Potassium Level 3.4 MMOL/L (3.5-5.1) L Chloride Level 100 MMOL/L (98-107) Carbon Dioxide Level 27 MMOL/L (21-32) Anion Gap 8 mmol/L (5-15) Blood Urea Nitrogen 36 mg/dL (7-18) H Creatinine 1.4 MG/DL (0.55-1.30) H Estimat Glomerular Filtration Rate 44.1 mL/min (>60) Glucose Level 120 MG/DL (74-106) H Uric Acid 8.8 MG/DL (2.6-7.2) H Calcium Level 8.8 MG/DL (8.5-10.1) Phosphorus Level 2.6 MG/DL (2.5-4.9) Magnesium Level 1.9 MG/DL (1.8-2.4) Total Creatine Kinase 291 U/L (26-140) H Troponin I 0.020 ng/mL (0.000-0.056) C-Reactive Protein, Quantitative 11.0 mg/dL (0.00-0.90) H Urine Color Pale yellow Urine Appearance Slightly cloudy Urine pH 6 (4.5-8.0) Urine Specific [place] 1.010 (1.005-1.035) Urine Protein 2+ (NEGATIVE) H Urine Glucose (UA) 1+ (NEGATIVE) H Urine Ketones Negative (NEGATIVE) Urine Blood 2+ (NEGATIVE) H Urine Nitrite Negative (NEGATIVE) Urine Bilirubin Negative (NEGATIVE) Urine Urobilinogen Normal MG/DL (0.0-1.0) Urine Leukocyte Esterase Negative (NEGATIVE) Urine RBC 0-2 /HPF (0 - 2) Urine WBC 0-2 /HPF (0 - 2) Urine Squamous Epithelial Cells Few /LPF (NONE/OCC) Urine Bacteria Many /HPF (NONE) H Urine Eosinophils None seen (NONE SEEN) Urine Osmolality Pending Urine Random Creatinine Pending Urine Random Microalbumin Pending Urine Random Sodium 115 mmol/L (20-110) H Urine Microalbumin/Creatinine Ratio Pending Current Medications Medications (Trade) Dose Ordered Sig/Natalya Route PRN Reason Start Time Stop Time Status Last Admin Dose Admin Acetaminophen (Tylenol) 650 mg Q6H PRN ORAL Temp >100.5 03/14/20 23:00 04/13/20 22:59 03/15/20 15:11 Acetaminophen (Tylenol) 650 mg Q6H PRN ORAL Mild Pain (Pain Scale 1-3) 03/14/20 23:00 04/13/20 22:59 Amlodipine Besylate (Norvasc) 5 mg BID ORAL 03/15/20 18:00 04/14/20 08:59 03/16/20 09:06 Aspirin (ASA) 81 mg DAILY NG 03/15/20 09:00 04/29/20 08:59 03/16/20 09:05 Dexamethasone Sodium Phosphate (Decadron 10mg/ ml Inj) 6 mg DAILY IV 03/15/20 09:00 03/24/20 09:01 03/16/20 09:06 Dextrose/ Electrolytes 1,000 ml @ 75 mls/hr [id number] IV 03/15/20 14:00 04/14/20 13:59 03/16/20 03:35 Docusate Sodium (Colace) 100 mg THREE TIMES A DAY ORAL 03/15/20 13:00 04/14/20 12:59 03/16/20 09:05 Heparin Sodium (Porcine) (Heparin 5000 units/ml) 5,000 units EVERY 12 HOURS SUBQ 03/15/20 09:00 04/29/20 08:59 03/16/20 09:05 Hydralazine HCl (Apresoline) 25 mg Q4H PRN ORAL BP over 160 systolic 03/15/20 12:15 06/13/20 12:14 03/16/20 09:06 Lorazepam (Ativan 2mg/ml 1ml) 0.5 mg EVERY 6 HOURS PRN IV For Anxiety 03/14/20 23:00 03/21/20 22:59 Ondansetron HCl (Zofran) 4 mg Q6H PRN IVP Nausea & Vomiting 03/14/20 23:00 04/13/20 22:59 Pantoprazole (Protonix) 40 mg EVERY 12 HOURS ORAL 03/15/20 21:00 04/14/20 20:59 03/16/20 09:05 Maggie Chowdary M.D. Mar 16, 2020 09:09
--- NOTE | 2020-03-16 11:59 | Pulmonology Progress Note ---
Subjective Interval Events: looks comfortable Allergies: Coded Allergies: No Known Allergies (Unverified , 03/14/20) Objective Last 24 Hour Vital Signs Date Time Temp Pulse Resp B/P (MAP) Pulse Ox O2 Delivery O2 Flow Rate FiO2 03/16/20 09:06 166/100 03/16/20 09:06 75 166/100 03/16/20 09:00 Room Air 03/16/20 08:00 97.1 75 20 166/100 (122) 96 03/16/20 04:00 96.6 92 19 145/93 (110) 98 03/16/20 00:04 163/92 03/16/20 00:00 97.6 82 20 162/92 (115) 95 03/15/20 21:00 Room Air 03/15/20 20:00 97.7 91 19 155/95 (115) 95 03/15/20 18:29 86 143/75 03/15/20 16:00 98.8 86 18 143/75 (97) 97 03/15/20 15:41 99.8 03/15/20 15:11 166/98 03/15/20 12:00 101.1 78 18 166/98 (120) 92 Intake and Output 03/15/20 03/16/20 19:00 07:00 Output Total 200 ml 500 ml Balance -200 ml -500 ml Output Urine Total 200 ml 500 ml # Voids 2 General Appearance: WD/WN HEENT: normocephalic, atraumatic Respiratory: chest wall non-tender, lungs clear Breasts: no masses Cardiovascular: normal peripheral pulses, normal rate Abdomen: normal bowel sounds, soft, non tender Genitourinary: normal external genitalia Extremities: no clubbing Skin: no rash Neurologic: hearing care practitioner II-XII grossly normal Microbiology Date/Time Source Procedure Growth Status 03/14/20 18:51 Nasopharynx SARS-CoV-2 RdRp Gene Assay - Final Complete Laboratory Tests 03/15/20 18:37: Urine Color Pale yellow, Urine Appearance Slightly cloudy, Urine pH 6, Urine Specific [place] 1.010, Urine Protein 2+H, Urine Glucose (UA) 1+H, Urine Ketones Negative, Urine Blood 2+H, Urine Nitrite Negative, Urine Bilirubin Negative, Urine Urobilinogen Normal, Urine Leukocyte Esterase Negative, Urine RBC 0-2, Urine WBC 0-2, Urine Squamous Epithelial Cells Few, Urine Bacteria ManyH, Urine Eosinophils None seen, Urine Osmolality [Pending], Urine Random Creatinine [Pending], Urine Random Microalbumin [Pending], Urine Random Sodium 115H, Urine Microalbumin/Creatinine Ratio [Pending] Current Medications Medications (Trade) Dose Ordered Sig/Natalya Route PRN Reason Start Time Stop Time Status Last Admin Dose Admin Acetaminophen (Tylenol) 650 mg Q6H PRN ORAL Temp >100.5 03/14/20 23:00 04/13/20 22:59 03/15/20 15:11 Acetaminophen (Tylenol) 650 mg Q6H PRN ORAL Mild Pain (Pain Scale 1-3) 03/14/20 23:00 04/13/20 22:59 Amlodipine Besylate (Norvasc) 5 mg BID ORAL 03/15/20 18:00 04/14/20 08:59 03/16/20 09:06 Aspirin (ASA) 81 mg DAILY NG 03/15/20 09:00 04/29/20 08:59 03/16/20 09:05 Dextrose/ Electrolytes 1,000 ml @ 75 mls/hr [id number] IV 03/15/20 14:00 04/14/20 13:59 03/16/20 03:35 Docusate Sodium (Colace) 100 mg THREE TIMES A DAY ORAL 03/15/20 13:00 04/14/20 12:59 03/16/20 09:05 Heparin Sodium (Porcine) (Heparin 5000 units/ml) 5,000 units EVERY 12 HOURS SUBQ 03/15/20 09:00 04/29/20 08:59 03/16/20 09:05 Hydralazine HCl (Apresoline) 25 mg Q4H PRN ORAL BP over 160 systolic 03/15/20 12:15 06/13/20 12:14 03/16/20 09:06 Lorazepam (Ativan 2mg/ml 1ml) 0.5 mg EVERY 6 HOURS PRN IV For Anxiety 03/14/20 23:00 03/21/20 22:59 Ondansetron HCl (Zofran) 4 mg Q6H PRN IVP Nausea & Vomiting 03/14/20 23:00 04/13/20 22:59 Pantoprazole (Protonix) 40 mg EVERY 12 HOURS ORAL 03/15/20 21:00 04/14/20 20:59 03/16/20 09:05 Assessment/Plan Problems: (1) COVID-19 (2) JOY (acute kidney injury) (3) Alzheimer's dementia (4) History of hypertension Assessment/Plan respiratory isolation titrate fio2 to sat of 92 IV fluids, renal function improving renal w/u including renal US reviewed check electrolytes daily off abx and steroids dvt prophylaxis antitussives symptomatic treatment. Marcelo Gabriel MD Mar 16, 2020 11:59
[2020-03-16 12:00] VITALS: BP 153/88
--- NOTE | 2020-03-16 14:23 | Nephrology Progress Note ---
Assessment/Plan Problem List: (1) JOY (acute kidney injury) (2) COVID-19 (3) History of hypertension (4) Alzheimer's dementia (5) Elevated lipase Assessment Acute renal failure Possible underlying chronic kidney disease Dehydration COVID-19 infection Hypertension Dementia Elevated lipase Plan March 16: No CHEM panel drawn today as of now. Continue to monitor renal parameters. Adjust blood pressure medication. Per orders. Slow hydrate Keep blood pressure in check Antibiotics and treatment aimed towards Covid infection Monitor renal parameters, and lipase level Urine studies Per orders Subjective ROS Limited/Unobtainable: No Constitutional: Reports: malaise Objective Objective Last 24 Hour Vital Signs Date Time Temp Pulse Resp B/P (MAP) Pulse Ox O2 Delivery O2 Flow Rate FiO2 03/16/20 12:00 98.3 104 20 153/88 (109) 97 03/16/20 09:06 166/100 03/16/20 09:06 75 166/100 03/16/20 09:00 Room Air 03/16/20 08:00 97.1 75 20 166/100 (122) 96 03/16/20 04:00 96.6 92 19 145/93 (110) 98 03/16/20 00:04 163/92 03/16/20 00:00 97.6 82 20 162/92 (115) 95 03/15/20 21:00 Room Air 03/15/20 20:00 97.7 91 19 155/95 (115) 95 03/15/20 18:29 86 143/75 03/15/20 16:00 98.8 86 18 143/75 (97) 97 03/15/20 15:41 99.8 03/15/20 15:11 166/98 Intake and Output 03/15/20 03/16/20 19:00 07:00 Output Total 200 ml 500 ml Balance -200 ml -500 ml Output Urine Total 200 ml 500 ml # Voids 2 Laboratory Tests 03/15/20 18:37: Urine Color Pale yellow, Urine Appearance Slightly cloudy, Urine pH 6, Urine Specific [place] 1.010, Urine Protein 2+H, Urine Glucose (UA) 1+H, Urine Ketones Negative, Urine Blood 2+H, Urine Nitrite Negative, Urine Bilirubin Negative, Urine Urobilinogen Normal, Urine Leukocyte Esterase Negative, Urine RBC 0-2, Urine WBC 0-2, Urine Squamous Epithelial Cells Few, Urine Bacteria ManyH, Urine Eosinophils None seen, Urine Osmolality [Pending], Urine Random Creatinine [Pending], Urine Random Microalbumin [Pending], Urine Random Sodium 115H, Urine Microalbumin/Creatinine Ratio [Pending] Height (Feet): 5 Height (Inches): 4.00 Weight (Pounds): 199 General Appearance: no apparent distress Cardiovascular: tachycardia Respiratory/Chest: decreased breath sounds Abdomen: distended Kristopher Lomeli MD Mar 16, 2020 14:23
--- NOTE | 2020-03-16 14:29 | Consultation ---
History of Present Illness General Date patient seen: Mar 16, 2020 Reason for Hospitalization: Generalized Weakness Present Illness HPI 79-year-old female presents to the emergency department at [facility] brought by ambulance after concerned daughter called 911. Daughter reports that since Friday the patient has had significant fatigue and weakness. Her daughter reports that the patient is normally ambulatory and much more alert. The daughter states that her mother has not eaten in 5 days and is just been wanting to lay down. She reports that her mom did complain about right leg pain with some swelling. Daughter reports history of right knee injury and frequent swelling of the lower extremities. The patient reports 5 out of 10 severity pain in the right calf she denies having knee pain. Patient denies cough, shortness of breath, dizziness or fatigue. Pt. Denies abdominal pain or tenderness. She denies trauma or fall. Pt. Reports having normal bowel movements, and denies urinary symptoms. PmHx of HTN and Dementia. on admission noted to have pancreatitis. surgery called to evaluate and assist with care. limited from patient given medical condition Allergies: Coded Allergies: No Known Allergies (Unverified , 03/14/20) COVID-19 Screening Contact w/high risk pt: No Experienced COVID-19 symptoms?: Yes Coronavirus symptoms experienc: Fatigue, Muscle or Body Aches Medication History Scheduled Aspirin* (Aspirin*), 81 MG ORAL DAILY, (Reported) Atorvastatin Calcium* (Lipitor*), 20 MG ORAL DAILY, (Reported) Hydrochlorothiazide* (Hydrochlorothiazide*), 12.5 MG ORAL DAILY, (Reported) Losartan Potassium* (Losartan Potassium*), 100 MG ORAL DAILY, (Reported) Potassium Chloride* (K-Dur*), 20 MEQ ORAL DAILY, (Reported) Patient History History Provided By: Patient, Medical Record, PMD Healthcare decision maker Resuscitation status Advanced Directive on File Past Medical/Surgical History Past Medical/Surgical History: (1) Pancreatitis (2) Elevated lipase (3) JOY (acute kidney injury) (4) COVID-19 (5) History of hypertension (6) Alzheimer's dementia Review of Systems Review of Symptoms General ROS: no weight loss or fever Psychological ROS: no depression or mood changes, no memory loss Ophthalmic ROS: no visual changes or eye irritation ENT ROS: no nasal congestion, hearing loss, dizziness Allergy and Immunology ROS: no allergic symptoms or urticaria Hematological and Lymphatic ROS: no swollen glands, unusual bleeding or bruising Endocrine ROS: no polyuria, polydipsia, weight changes, temperature intolerance Respiratory ROS: no cough, shortness of breath, or wheezing Cardiovascular ROS: no chest pain or dyspnea on exertion Gastrointestinal ROS: denies abdominal pain, bright red blood in stool. Musculoskeletal ROS: no myalgias or arthralgias Neurological ROS: no TIA or stroke symptoms Dermatological ROS: no new or changing skin lesions, rashes or pruritis Physical Exam Physical Exam General appearance: alert, cooperative, no distress, appears stated age Head: Normocephalic, without obvious abnormality, atraumatic Eyes: conjunctivae/corneas clear. PERRL, EOM's intact. Fundi benign Throat: Lips, mucosa, and tongue normal. Teeth and gums normal Neck: supple, symmetrical, trachea midline, no adenopathy, thyroid: not enlarged, symmetric, no tenderness/mass/nodules, no carotid bruit and no JVD Lungs: clear to auscultation bilaterally Heart: regular rate and rhythm, S1, S2 normal, no murmur, click, rub or gallop Abdomen: soft, non-tender. Bowel sounds normal. No masses, no organomegaly Extremities: extremities normal, atraumatic, no cyanosis or edema Pulses: 2+ and symmetric Skin: Skin color, texture, turgor normal. No rashes or lesions Neurologic: Grossly normal Last 24 Hour Vital Signs Date Time Temp Pulse Resp B/P (MAP) Pulse Ox O2 Delivery O2 Flow Rate FiO2 03/16/20 12:00 98.3 104 20 153/88 (109) 97 03/16/20 09:06 166/100 03/16/20 09:06 75 166/100 03/16/20 09:00 Room Air 03/16/20 08:00 97.1 75 20 166/100 (122) 96 03/16/20 04:00 96.6 92 19 145/93 (110) 98 03/16/20 00:04 163/92 03/16/20 00:00 97.6 82 20 162/92 (115) 95 03/15/20 21:00 Room Air 03/15/20 20:00 97.7 91 19 155/95 (115) 95 03/15/20 18:29 86 143/75 03/15/20 16:00 98.8 86 18 143/75 (97) 97 03/15/20 15:41 99.8 03/15/20 15:11 166/98 Intake and Output0 03/15/20 03/16/20 19:00 07:00 Output Total 200 ml 500 ml Balance -200 ml -500 ml Output Urine Total 200 ml 500 ml # Voids 2 Laboratory Tests Test 03/15/20 18:37 Urine Color Pale yellow Urine Appearance Slightly cloudy Urine pH 6 (4.5-8.0) Urine Specific Terrell 1.010 (1.005-1.035) Urine Protein 2+ (NEGATIVE) H Urine Glucose (UA) 1+ (NEGATIVE) H Urine Ketones Negative (NEGATIVE) Urine Blood 2+ (NEGATIVE) H Urine Nitrite Negative (NEGATIVE) Urine Bilirubin Negative (NEGATIVE) Urine Urobilinogen Normal MG/DL (0.0-1.0) Urine Leukocyte Esterase Negative (NEGATIVE) Urine RBC 0-2 /HPF (0 - 2) Urine WBC 0-2 /HPF (0 - 2) Urine Squamous Epithelial Cells Few /LPF (NONE/OCC) Urine Bacteria Many /HPF (NONE) H Urine Eosinophils None seen (NONE SEEN) Urine Osmolality Pending Urine Random Creatinine Pending Urine Random Microalbumin Pending Urine Random Sodium 115 mmol/L (20-110) H Urine Microalbumin/Creatinine Ratio Pending Microbiology Date/Time Source Procedure Growth Status 03/15/20 18:37 Urine,Clean Catch Urine Culture - Preliminary Gram Negative Jesse Resulted Height (Feet): 5 Height (Inches): 4.00 Weight (Pounds): 199 Medications Current Medications Medications (Trade) Dose Ordered Sig/Natalya Route PRN Reason Start Time Stop Time Status Last Admin Dose Admin Acetaminophen (Tylenol) 650 mg Q6H PRN ORAL Temp >100.5 03/14/20 23:00 04/13/20 22:59 03/15/20 15:11 Acetaminophen (Tylenol) 650 mg Q6H PRN ORAL Mild Pain (Pain Scale 1-3) 03/14/20 23:00 04/13/20 22:59 Amlodipine Besylate (Norvasc) 5 mg BID ORAL 03/15/20 18:00 04/14/20 08:59 03/16/20 09:06 Aspirin (ASA) 81 mg DAILY NG 03/15/20 09:00 04/29/20 08:59 03/16/20 09:05 Dextrose/ Electrolytes 1,000 ml @ 75 mls/hr [id number] IV 03/15/20 14:00 04/14/20 13:59 03/16/20 03:35 Docusate Sodium (Colace) 100 mg THREE TIMES A DAY ORAL 03/15/20 13:00 04/14/20 12:59 03/16/20 09:05 Heparin Sodium (Porcine) (Heparin 5000 units/ml) 5,000 units EVERY 12 HOURS SUBQ 03/15/20 09:00 04/29/20 08:59 03/16/20 09:05 Hydralazine HCl (Apresoline) 25 mg Q4H PRN ORAL BP over 160 systolic 03/15/20 12:15 06/13/20 12:14 03/16/20 09:06 Lorazepam (Ativan 2mg/ml 1ml) 0.5 mg EVERY 6 HOURS PRN IV For Anxiety 03/14/20 23:00 03/21/20 22:59 Ondansetron HCl (Zofran) 4 mg Q6H PRN IVP Nausea & Vomiting 03/14/20 23:00 04/13/20 22:59 Pantoprazole (Protonix) 40 mg EVERY 12 HOURS ORAL 03/15/20 21:00 04/14/20 20:59 03/16/20 09:05 Assessment/Plan Problem List: (1) Elevated lipase ICD Codes: R74.8 - Abnormal levels of other serum enzymes SNOMED: 948471914 (2) Pancreatitis Assessment & Plan: chemical pancreatitis lft's okay all imaging reviewed no abd pain on exam exam benign no acute intervention cont fluids cont diet will follow with recs trend labs ICD Codes: K85.90 - Acute pancreatitis without necrosis or infection, unspecified SNOMED: 63768854 (3) JOY (acute kidney injury) ICD Codes: N17.9 - Acute kidney failure, unspecified SNOMED: 55185686, 0654181 (4) COVID-19 Assessment & Plan: ++ on tx pulm input noted cont respiratory care id input appreciated Heart size and mediastinal contours are within normal limits for AP technique. There is no focal airspace consolidation, pneumothorax or pleural effusion. Osseous structures demonstrate no acute abnormality. ICD Codes: U07.1 - COVID-19 SNOMED: 754001748 (5) History of hypertension ICD Codes: Z86.79 - Personal history of other diseases of the circulatory system SNOMED: 994619997 (6) Alzheimer's dementia ICD Codes: G30.9 - Alzheimer's disease, unspecified; F02.80 - Dementia in other diseases classified elsewhere without behavioral disturbance SNOMED: 04207329 Hunter Aviles Mar 16, 2020 14:29
--- NOTE | 2020-03-19 08:59 | Discharge Summary ---
Discharge Summary Discharge Summary _ DATE OF ADMISSION: [] 03/14/2020 DATE OF DISCHARGE: [] 03/16/2020 DISCHARGED BY: Dr. San REASON FOR ADMISSION: 79 years old female with past medical history of hypertension, dementia, presented by ambulance after the daughter called paramedics. Daughter reported loss 4 days patient had significant fatigue and weakness. Patient normally ambulatory and more alert the daughter stated that her mother has not eaten in 5 days and just wanted to lie down. Mother complain of the right leg pain with the swelling report patient had a prior history of right knee injury and frequent swelling of the lower extremity. Pain reported 5 out of 10 on the and the right cough she denied knee pain. Patient denied cough shortness of breath dizziness or fatigue. Patient denied chest pain Patient denied abdominal pain diarrhea or 10 or vomiting. Patient denied trauma or fall. Patient denies urinary symptoms. Rapid COVID-19 in the emergency department was positive. Laboratory work-up revealed no leukocytosis stable hemoglobin hematocrit and platelet count. BUN 48 creatinine 2.3. Glucose 137. Troponin 0 0.021 proBNP 06/23/1989. Stable LFT, lipase 440 Albumin 3.2. Urinalysis revealed +3 protein chest x-ray demonstrated no evidence of acute cardiopulmonary disease. Venous duplex bilateral lower extremity revealed no evidence of acute DVT. In emergency department patient received liter of fluid analgesic and admitted to medical surgical floor for further management CONSULTANTS: pulmonary Dr. Gabriel ID specialist Dr. Chowdary land leasing information clerk Dr. Lomeli surgery Dr. Aviles [facility] COURSE: patient admitted to medical surgical floor patient started on patient was kept in isolation room. Supplemental oxygen was on board as needed to keep pulse oximetry above 92% albuterol MDI provided as needed. Patient remained in the room air. Steroids also started given that patient was on the not on the oxygen dependent. Patient was on steroids for 3 days and then was discontinued given the patient remained stable on room air without respiratory issues. Patient was monitored off antibiotic chest x-ray was negative patient was doing well on room air no leukocytosis no fever. Patient was not a candidate for remdesivir given that he was doing well on room air as well as to have acute kidney injury. Urinalysis was negative as mentioned above urine culture revealed E. coli pat ient likely has asymptomatic bacteriuria and and had no fever no leukocytosis and asymptomatic bacteriuria but was not treated. Renal parameters electrolytes were closely monitored electrolytes corrected as needed nephrotoxic's were avoided. Renal ultrasound revealed mild fullness of the right renal collecting system without vee hydronephrosis. With IV hydration BUN from 48 down to 36 and creatinine from 2.3 down to 1.4. According to land leasing information clerk patient likely caused by possible underlying chronic kidney disease. Patient was slowly hydrated while in the hospital. Blood pressure was managed with calcium channel ignacio and hydralazine was on board as needed for blood pressure spikes and culture DVT and GI prophylaxis provided. Supportive care continued. Home medication continued. Patient noted to have elevated lipase surgeon contacted imaging review no abdominal pain on examination abdominal exam appears benign no acute intervention letter necessarily lipase was trended with IV fluids continued pat ient was able to tolerate diet antiemetic were on board as needed. Patient clinically stabilized and was ready for discharge home. Patient need to continue self-isolation for total of 10 days from the date of positive diagnosis from [id number]. Patient subsequently was discharged home FINAL DIAGNOSES: COVID-19 Acute kidney injury possibly on underlying chronic kidney disease Dehydration Hypertension Alzheimer dementia Elevated lipase DISCHARGE MEDICATIONS: See Medication Reconciliation list. DISCHARGE INSTRUCTIONS: Patient was discharged to home. Continue self isoaltion till 03/23. I have been assigned to dictate discharge summary for this account. I was not involved in the patient's management. Nadya Lundberg NP Mar 19, 2020 08:59
== END 2020-03-16 17:50 | disposition home or self-care (01) | DRG 178 ==
LOC: EDBD 15:21 → EMR 16:00 → 4E 19:05 → EDBEDREQ 20:47
DX: U07.1 COVID-19 (principal); N17.9 Acute kidney failure, unspecified; G30.9 Alzheimer's disease, unspecified; F02.80 Dementia in other diseases classified elsewhere, unspecified severity, without behavioral disturbance, psychotic disturbance, mood disturbance, and anxiety; E78.00 Pure hypercholesterolemia, unspecified; I12.9 Hypertensive chronic kidney disease with stage 1 through stage 4 chronic kidney disease, or unspecified chronic kidney disease; N18.9 Chronic kidney disease, unspecified; M79.604 Pain in right leg
CPT/HCPCS: 36415; 71045; 76770; 80048; 80053; 81001; 81003; 82043; 82550; 82728; 83605; 83615; 83690; 83735; 83880; 83935; 84100; 84300; 84484; 84550; 85025; 85379; 85610; 85651; 85730; 86140; 87086; 87181; 89050; 93005; 93971; 96360; 99285; J7030; U0002